=== PATIENT | female | born 1985 | race Caucasian/White ===

== ENCOUNTER 2021-11-26 10:17 | Day surgery (SDC) | payer BC ==
[2021-11-24 15:39] VITALS: BMI 34.5
[2021-11-25 10:54] LABS: Hemoglobin 13.8 g/dL (12.0-15.5); Mean Corpuscular HGB CONC 32.5 g/dL (32.0-36.0); Mean Corpuscular Hemoglobin 29.1 pg (27.0-33.0); Mean Corpuscular Volume 89.5 fl (81.6-98.3); Mean Platelet Volume 9.8 fl (7.4-10.4); Platelet Count 235 10x3/uL (150-450); RBC Distribution Width 11.9 % (11.5-14.5); Red Blood Cell (RBC) Count 4.74 10x6/uL (3.90-5.03)
[2021-11-25 16:58] LABS: SARS-CoV-2 PCR by NAA Not Detected (NotDetected)
[2021-11-26] MEDS ORDERED: Lidocaine 1% MPF 2 ML VIAL ONE (10:50)
[2021-11-26] MEDS ORDERED: Ondansetron PF 4 MG/2 ML Vial ONE (11:25)
[2021-11-26] MEDS ORDERED: Bupivacaine PF 0.5% 30 ML VIAL ONE (12:14)
[2021-11-26] MEDS ORDERED: EPINEPHrine 1 MG/ML AMP ONE (12:14)
[2021-11-26] MEDS ORDERED: Methylergonovine 0.2 MG/ML VIAL ONE (12:15)
[2021-11-26] MEDS ORDERED: Midazolam HCl 2 mg/2 ml Vial ONE (12:36)
[2021-11-26] MEDS ORDERED: ceFAZolin 2 GM/Dextrose 50 ML IVPB ONE (12:44)
[2021-11-26] MEDS ORDERED: Silver Nitrate Application 1 EACH ONE (13:08)
[2021-11-26] MEDS ORDERED: HYDROcodone/Acetaminophen 5/325 mg Tablet PO PRN (14:21)
[2021-11-26] MEDS ORDERED: Acetaminophen 325 MG TAB PO PRN (14:21)
[2021-11-26] MEDS ORDERED: Fentanyl 100 MCG/2 ML VIAL ONE (14:34)
[2021-11-26] MEDS ORDERED: HYDROcodone/Acetaminophen 5/325 mg Tablet ONE (15:57)
== END 2021-11-26 16:35 | disposition home or self-care (01) ==
LOC: CSHSDC 10:17
PROVIDERS: ATTEND Obstetrics & Gynecology
PROC: 0FT44ZZ Resection of Gallbladder, Percutaneous Endoscopic Approach (ICD-10-PCS; principal; 2021-11-26)
PROC: 10D17ZZ Extraction of Products of Conception, Retained, Via Natural or Artificial Opening (ICD-10-PCS; principal; 2021-11-26)
DX: O02.1 Missed abortion (principal); K80.20 Calculus of gallbladder without cholecystitis without obstruction; I10 Essential (primary) hypertension; G43.909 Migraine, unspecified, not intractable, without status migrainosus; Z79.899 Other long term (current) drug therapy; Z20.822 Contact with and (suspected) exposure to COVID-19
CPT/HCPCS: 85027; 86850; 86900; 86901; 88304; 88305; C1776; J0171; J0690; J2210; J2250; J2405; J3010; S0020; U0003; U0005

== ENCOUNTER 2023-04-06 11:01 | Day surgery (SDC) | payer BC ==
[2023-04-05 17:20] VITALS: BMI 32.0
[2023-04-05 17:45] LABS: Hemoglobin 12.9 g/dL (12.0-15.5); Mean Corpuscular HGB CONC 33.9 g/dL (32.0-36.0); Mean Corpuscular Hemoglobin 29.5 pg (27.0-33.0); Mean Corpuscular Volume 87.2 fl (81.6-98.3); Mean Platelet Volume 10.4 fl (7.4-10.4); Platelet Count 309 10x3/uL (150-450); RBC Distribution Width 12.3 % (11.5-14.5); Red Blood Cell (RBC) Count 4.37 10x6/uL (3.90-5.03); White Blood Cell (WBC) Count 7.3 10x3/uL (3.5-10.5)
[2023-04-06] MEDS ORDERED: Gabapentin 300 MG CAP ONE (11:48)
[2023-04-06] MEDS ORDERED: CeleCOXIB 100 MG CAP ONE (11:49)
[2023-04-06] MEDS ORDERED: CEFAZOLIN 2 GM VIAL ONE (13:13)
[2023-04-06] MEDS ORDERED: Midazolam HCl 2 mg/2 ml Vial ONE (13:15)
[2023-04-06] MEDS ORDERED: fentaNYL 50 mcg/mL 1 mL Vial ONE ×2 (13:18→14:13)
[2023-04-06] MEDS ORDERED: PROPOFOL 20 ML ONE (13:18)
[2023-04-06] MEDS ORDERED: Lidocaine 2% PF 5 ML VIAL ONE (13:18)
[2023-04-06] MEDS ORDERED: Succinylcholine 200 MG/10 ml SYRINGE FS ONE (13:19)
[2023-04-06] MEDS ORDERED: Dexamethasone 4 mg/ml Vial ONE (13:19)
[2023-04-06] MEDS ORDERED: Metoclopramide HCl 10 MG/2 ML VIAL ONE (13:19)
[2023-04-06] MEDS ORDERED: Ondansetron PF 4 MG/2 ML Vial ONE (13:19)
[2023-04-06] MEDS ORDERED: Famotidine/PF 20 mg/2ml Vial ONE (13:20)
[2023-04-06] MEDS ORDERED: Meperidine HCl/PF 25 MG/ML VIAL ONE (14:01)
== END 2023-04-06 15:45 | disposition home or self-care (01) ==
LOC: CSHSDC 11:01
PROVIDERS: ATTEND Obstetrics & Gynecology
PROC: 10D07Z8 Extraction of Products of Conception, Other, Via Natural or Artificial Opening (ICD-10-PCS; principal; 2023-04-06)
DX: O03.9 Complete or unspecified spontaneous abortion without complication (principal); I10 Essential (primary) hypertension; Z90.49 Acquired absence of other specified parts of digestive tract; Z90.89 Acquired absence of other organs
CPT/HCPCS: 85027; 86850; 86900; 86901; J1100; J2001; J2175; J2250; J2405; J2704; J2765; J3010; S0028

== ENCOUNTER 2024-04-20 16:53 | Inpatient (IN) | payer BC ==
[2024-04-20 17:27] VITALS: BMI 36.7
[2024-04-20] MEDS ORDERED: Metoclopramide HCl 10 MG (2 mL) VIAL IVP SCH (17:45)
[2024-04-20] MEDS: diphenhydrAMINE 50 MG/ML VIAL IVP SCH (18:00)
[2024-04-20] MEDS: Metoclopramide HCl 10 MG (2 mL) VIAL IVP SCH (18:04)
[2024-04-20] MEDS: hydrALAZINE 20 MG/ML VIAL SLOW IVP PRN (18:42)
[2024-04-20 18:48] LABS: #Basophils 0.04 10x3/uL (0.0-0.2); #Eosinphils 0.35 10x3/uL (0.0-0.5); #Monocytes 0.65 10x3/uL (0.0-1.1); #Neutrophils 5.36 10x3/uL (1.5-8.4); %Basophils 0.5 % (0.0-2.0); %Eosinophils 4.4 % (0.0-6.0); %Lymphocytes 17.7 % (18.0-47.0); %Monocytes 8.2 % (0.0-10.0); %Neutrophils 67.3 % (40.0-75.0); Hematocrit 33.8 % (34.9-44.5); Hemoglobin 12.3 g/dL (12.0-15.5); Mean Corpuscular HGB CONC 36.4 g/dL (32.0-36.0); Mean Corpuscular Hemoglobin 31.9 pg (27.0-33.0); Mean Corpuscular Volume 87.6 fL (81.6-98.3); Mean Platelet Volume 10.8 fL (7.4-10.4); Platelet Count 217 10x3/uL (150-450); RBC Distribution Width 12.7 % (11.5-14.5); Red Blood Cell (RBC) Count 3.86 10x6/uL (3.90-5.03)
[2024-04-20 19:16] LABS: ALT (SGPT) 24 U/L (8-55); AST (SGOT) 20 U/L (5-34); Albumin 3.3 g/dL (3.5-5.0); Alkaline Phosphatase 74 U/L (40-110); Anion Gap 14 mmol/L (10-20); BUN (Urea Nitrogen) 8 mg/dL (7.0-18.7); Bilirubin, Total 0.2 mg/dL (0.2-1.2); Calc. Creatinine Clearance 156 mL/min (70-130); Calcium 9.5 mg/dL (7.8-10.44); Carbon Dioxide 21 mmol/L (22-29); Chloride 107 mmol/L (98-107); Estimated GFR 112; Globulin 2.8 g/dL (2.4-3.5); Glucose 85 mg/dL (70-105); Potassium 3.7 mmol/L (3.5-5.1); Protein, Total 6.1 g/dL (6.0-8.3); Sodium 138 mmol/L (136-145)
[2024-04-20 19:45] LABS: Creatinine, Urine 59.25 mg/dL (47-110); Protein, Urine Random Quant Less than 10 mg/dL (1-14)
[2024-04-20] MEDS: Labetalol HCl 200 MG TAB PO SCH (20:00)
[2024-04-20] MEDS: hydrALAZINE 20 MG/ML VIAL ONE (21:03)
[2024-04-20] MEDS ORDERED: Promethazine HCl 25 MG/ML VIAL IM PRN (21:27)
[2024-04-20] MEDS ORDERED: fentaNYL 50 mcg/mL 1 mL Vial SLOW IVP PRN (21:27)
[2024-04-20] MEDS ORDERED: Lorazepam 2 MG/ML VIAL SLOW IVP PRN (21:27)
[2024-04-20] MEDS ORDERED: hydrALAZINE 20 MG/ML VIAL SLOW IVP PRN ×2 (21:27)
[2024-04-20] MEDS ORDERED: Labetalol HCl 100 MG/20 ML VIAL SLOW IVP PRN ×2 (21:27)
[2024-04-20] MEDS ORDERED: Zolpidem Tartrate 5 MG TAB PO PRN (21:27)
[2024-04-20] MEDS ORDERED: Oxytocin 30 units/NS 500 ML 500 ML IV SCH (21:30)
[2024-04-20] MEDS: Magnesium Sulfate 20 gm/500 ml 20 GM/500 ML BAG ONE (21:49)
[2024-04-20] MEDS: Betamet Acet/Betamet Na Ph 30 MG/5 ML VIAL IM SCH (22:12)
[2024-04-20 22:27] LABS: Syphilis Antibody Nonreactive (Nonreactive); Syphilis Antibody Index 0.06 S/CO (<1.00 Non-Reactive)
[2024-04-20 22:30] LABS: HBsAg Index 0.19 S/CO (0-0.99); Hep B Surf Ag - L&D Non-Reactive S/CO (NonReactive)
[2024-04-20] MEDS: Magnesium Sulfate 20 gm/500 ml 6 GM/150 ML BAG IVPB SCH (22:58)
[2024-04-21] MEDS: Acetaminophen 500 MG TAB PO PRN (01:16)
[2024-04-21 03:22] LABS: Hematocrit 33.6 % (34.9-44.5); Hemoglobin 11.9 g/dL (12.0-15.5); Mean Corpuscular HGB CONC 35.4 g/dL (32.0-36.0); Mean Corpuscular Hemoglobin 30.8 pg (27.0-33.0); Mean Platelet Volume 10.3 fL (7.4-10.4); Platelet Count 214 10x3/uL (150-450); RBC Distribution Width 12.8 % (11.5-14.5); Red Blood Cell (RBC) Count 3.86 10x6/uL (3.90-5.03); White Blood Cell (WBC) Count 10.5 10x3/uL (3.5-10.5)
[2024-04-21 03:43] LABS: ALT (SGPT) 28 U/L (8-55); AST (SGOT) 26 U/L (5-34); Albumin 3.2 g/dL (3.5-5.0); Alkaline Phosphatase 69 U/L (40-110); Anion Gap 16 mmol/L (10-20); BUN (Urea Nitrogen) 6 mg/dL (7.0-18.7); Bilirubin, Total 0.3 mg/dL (0.2-1.2); Calc. Creatinine Clearance 163 mL/min (70-130); Carbon Dioxide 17 mmol/L (22-29); Chloride 106 mmol/L (98-107); Estimated GFR 115; Globulin 2.9 g/dL (2.4-3.5); Glucose 134 mg/dL (70-105); Potassium 3.6 mmol/L (3.5-5.1); Protein, Total 6.1 g/dL (6.0-8.3); Sodium 135 mmol/L (136-145)
[2024-04-21] MEDS: Magnesium Sulfate 20 gm/500 ml 20 GM/500 ML BAG ONE ×2 (05:04→20:14)
[2024-04-21] MEDS: Magnesium Sulfate 20 gm/500 ml 2 GM/50 ML BAG IVPB ONE (05:04)
[2024-04-21] MEDS: Ketorolac Tromethamine 30 MG (1 mL) VIAL IM SCH (06:04)
[2024-04-21] MEDS: diphenhydrAMINE 50 MG/ML VIAL IVP PRN (06:12)
[2024-04-21] MEDS: Metoclopramide HCl 10 MG (2 mL) VIAL IVP PRN (06:14)
[2024-04-21] MEDS: Calcium Gluc 4.6 MEQ/10 ML (100 MG/ML) SLOW IVP PRN (07:25)
[2024-04-21 08:03] LABS: Critical Call Chemistry NUR.SBF @0802; Magnesium 5.1 mg/dL (1.6-2.6)
[2024-04-21 08:06] LABS: Analyzer IN Cardio CS NICU; Base Excess (BEa) -4.9 mEq/L (-2.0 to +3.0); CO2 Tension 27.2 mmHg (35.0-45.0); Calcium, Ionized (arterial) 1.09 mmol/L (1.12-1.30); Carboxyhemoglobin (COHb) 0.3 gm% (0.0-3.0); Hematocrit-ABG 36 % (36.0-47.0); Hemoglobin (Hb) 12.3 g/dL (12.0-16.0); O2 Tension (PaO2), arterial 150.2 mmHg (80.0-100.0); Potassium - ABG Lab 3.71 mmol/L (3.70-5.30); Puncture Site LRA; pH, Arterial 7.438 (7.35-7.45)
[2024-04-21] MEDS: Labetalol HCl 200 MG TAB PO SCH ×2 (10:19→20:56)
[2024-04-21] MEDS ORDERED: Acetaminophen 325 MG TAB PO PRN (11:29)
[2024-04-21] MEDS: Lidocaine 1% (PF) 30 ML VIAL NERVE BLCK SCH (12:20)
[2024-04-21] MEDS: Bupivacaine 0.75% W/DEXTROSE 8.25% 2 ML AMP NERVE BLCK SCH (12:20)
[2024-04-21] MEDS: Metoclopramide HCl 10 MG (2 mL) VIAL IVP SCH ×3 (12:35→20:58)
[2024-04-21] MEDS: Fioricet 325/50/40 mg Tablet PO SCH ×2 (16:49→21:17)
[2024-04-21] MEDS: Bupivacaine 0.25% HCL 30 ML VIAL ONE (20:13)
[2024-04-21] MEDS: PHENYLEPHRINE-NS 100 MCG/ML 10 ML SYRINGE ONE (20:14)
[2024-04-21] MEDS: ePHEDrine Sulfate 50 MG/10 ML VIAL ONE (20:14)
[2024-04-21] MEDS ORDERED: Ondansetron PF 4 MG/2 ML Vial IM SCH (20:45)
[2024-04-21] MEDS ORDERED: Labetalol HCl 100 MG TAB PO SCH (21:00)
[2024-04-21] MEDS: Ondansetron PF 4 MG/2 ML Vial IVP PRN (21:08)
[2024-04-21] MEDS: Ondansetron PF 4 MG/2 ML Vial IVP SCH (21:12)
[2024-04-21 21:33] LABS: ALT (SGPT) 29 U/L (8-55); AST (SGOT) 21 U/L (5-34); Albumin 3.2 g/dL (3.5-5.0); Alkaline Phosphatase 69 U/L (40-110); Anion Gap 18 mmol/L (10-20); BUN (Urea Nitrogen) 7 mg/dL (7.0-18.7); Bilirubin, Total 0.2 mg/dL (0.2-1.2); Calc. Creatinine Clearance 135 mL/min (70-130); Calcium 7.5 mg/dL (7.8-10.44); Carbon Dioxide 16 mmol/L (22-29); Chloride 107 mmol/L (98-107); Estimated GFR 94; Globulin 3.2 g/dL (2.4-3.5); Glucose 152 mg/dL (70-105); Potassium 3.5 mmol/L (3.5-5.1); Protein, Total 6.4 g/dL (6.0-8.3); Sodium 137 mmol/L (136-145)
[2024-04-21] MEDS: Bupivacaine 0.25% 10 ML VIAL FS SCH (21:57)
[2024-04-21] MEDS: Bupivacaine 0.25% HCL 30 ML VIAL FS SCH (21:57)
[2024-04-21 22:06] LABS: #Basophils 0.03 10x3/uL (0.0-0.2); #Eosinphils 0.01 10x3/uL (0.0-0.5); #Neutrophils 8.77 10x3/uL (1.5-8.4); %Basophils 0.3 % (0.0-2.0); %Eosinophils 0.1 % (0.0-6.0); %Lymphocytes 9.4 % (18.0-47.0); %Monocytes 6.5 % (0.0-10.0); %Neutrophils 82.1 % (40.0-75.0); Hematocrit 33.8 % (34.9-44.5); Hemoglobin 11.7 g/dL (12.0-15.5); Mean Corpuscular HGB CONC 34.6 g/dL (32.0-36.0); Mean Corpuscular Hemoglobin 31.3 pg (27.0-33.0); Mean Corpuscular Volume 90.4 fL (81.6-98.3); Mean Platelet Volume 10.5 fL (7.4-10.4); Platelet Count 238 10x3/uL (150-450); RBC Distribution Width 12.8 % (11.5-14.5); Red Blood Cell (RBC) Count 3.74 10x6/uL (3.90-5.03); White Blood Cell (WBC) Count 10.7 10x3/uL (3.5-10.5)
[2024-04-21] MEDS: Docusate 100 MG CAP PO PRN (23:06)
[2024-04-21 23:07] LABS: Urine Total Volume 5900 mL (600-1600)
[2024-04-21 23:23] LABS: Protein, Urine Less than 10 mg/dL (1-14)
[2024-04-22] MEDS: Calcium Carbonate 500 MG ChewTAB PO PRN (21:03)
[2024-04-23 08:15] VITALS: TEMP 97.9
[2024-04-23 08:39] VITALS: BP 122/71
== END 2024-04-23 11:35 | disposition home health service (06) | DRG 833 ==
LOC: CSHLD/OP 16:53 → CSHLD 21:26 → CSHANTE 04-22 10:35 → OBSVTOIN 04-22 15:39
PROVIDERS: ADMIT Obstetrics & Gynecology; ATTEND Obstetrics & Gynecology
PROC: 4A033R1 Measurement of Arterial Saturation, Peripheral, Percutaneous Approach (ICD-10-PCS; principal; 2024-04-21)
PROC: 3E0T3BZ Introduction of Anesthetic Agent into Peripheral Nerves and Plexi, Percutaneous Approach (ICD-10-PCS; 2024-04-21)
DX: O10.913 Unspecified pre-existing hypertension complicating pregnancy, third trimester (principal); G56.00 Carpal tunnel syndrome, unspecified upper limb; O99.353 Diseases of the nervous system complicating pregnancy, third trimester; Z79.899 Other long term (current) drug therapy; G43.909 Migraine, unspecified, not intractable, without status migrainosus; Z79.82 Long term (current) use of aspirin; Z3A.28 28 weeks gestation of pregnancy
CPT/HCPCS: 36415; 36600; 76815; 76819; 80053; 82570; 82805; 83735; 84156; 85025; 85027; 86780; 86850; 86900; 86901; 87340; J0360; J0612; J0665; J0702; J1200; J1885; J2405; J2765; J3475